=== PATIENT | male | born 1965 | race Hispanic/Latino ===

== ENCOUNTER 2021-11-12 20:31 | Emergency (ER) | payer SELFPAY ==
[~2021-11-12] VITALS: Ht 172.7 cm; Wt 102.5 kg
[2021-11-12 20:34] VITALS: BP 125/74
[2021-11-12] MEDS ORDERED: KETOROLAC 30MG VIAL (30MG/ML) IM ONE (21:00)
[2021-11-12] MEDS ORDERED: ORPHENADRINE CITRATE 30 MG/ML ML IM ONE (21:00)
[2021-11-12] MEDS ORDERED: KETOROLAC 30MG VIAL (30MG/ML) ONE (21:12)
[2021-11-12] MEDS ORDERED: ORPHENADRINE CITRATE 30 MG/ML ML ONE (21:12)
[2021-11-12] MEDS ORDERED: CYCL10TA16 PO (21:40)
[2021-11-12] MEDS ORDERED: IBUP-2070 PO (21:40)
== END 2021-11-12 21:58 | disposition home or self-care (01) ==
LOC: EDH 20:31
DX: M54.2 Cervicalgia (principal); Z79.1 Long term (current) use of non-steroidal anti-inflammatories (NSAID); V49.49XA Driver injured in collision with other motor vehicles in traffic accident, initial encounter; Y93.89 Activity, other specified; Y92.89 Other specified places as the place of occurrence of the external cause; Y99.8 Other external cause status
CPT/HCPCS: 72125; 96372 ×2; 99284; J1885; J2360